=== PATIENT | female | born 1970 | race Hispanic/Latino ===

== ENCOUNTER 2022-07-28 10:59 | Emergency (ER) | payer OTHER ==
[~2022-07-28] VITALS: Ht 157.5 cm; Wt 77.6 kg
[2022-07-28 11:21] VITALS: BP 132/92
[2022-07-28] MEDS ORDERED: AMOX500C2 PO (12:02)
== END 2022-07-28 12:12 | disposition home or self-care (01) ==
LOC: EDH 10:59
DX: J32.9 Chronic sinusitis, unspecified (principal); Z20.822 Contact with and (suspected) exposure to COVID-19
CPT/HCPCS: 99283; 87635; 87804 ×2; C9803